=== PATIENT | female | born 1965 | race Caucasian/White ===

== ENCOUNTER 2019-07-17 07:52 | Emergency (ER) | payer OTHER ==
[2019-07-17 09:35] LABS: ABSOLUTE LYMPHOCYTES (AUTO) 1.3 10^3/uL (0.5-4.7); ABSOLUTE MONOCYTES (AUTO) 0.6 10^3/uL (0.1-1.4); ABSOLUTE NEUT (AUTO) 5.9 10^3/uL (1.7-8.2); BASOPHILS % (AUTO) 0.3 % (0-2); EOSINOPHILS % (AUTO) 0.2 % (0-6); HEMATOCRIT 40.6 % (36.0-47.0); HEMOGLOBIN 13.6 g/dL (12.0-15.5); LYMPHOCYTES % (AUTO) 16.3 % (13-45); MEAN CORPUSCULAR HEMOGLOBIN 29.4 pg (27.0-33.4); MEAN CORPUSCULAR HGB CONC 33.4 g/dL (32.0-36.0); MEAN CORPUSCULAR VOLUME 88 fl (80-97); MONOCYTES % (AUTO) 7.6 % (3-13); PLATELET COUNT 318 10^3/uL (150-450); RED BLOOD COUNT 4.62 10^6/uL (3.72-5.28); RED CELL DISTRIBUTION WIDTH 14.1 % (11.5-14.0); SEGMENTED NEUTROPHILS % (AUTO) 75.6 % (42-78); TOTAL CELLS COUNTED % (AUTO) 100 %; WHITE BLOOD COUNT 7.8 10^3/uL (4.0-10.5)
[2019-07-17 09:43] LABS: APPEARANCE,URINE CLOUDY; BILIRUBIN,URINE NEGATIVE (NEGATIVE); COLOR,URINE YELLOW; GLUCOSE, URINE NEGATIVE (NEGATIVE); KETONES,URINE 20 mg/dL (NEGATIVE); LEUKOCYTE ESTERASE,URINE NEGATIVE (NEGATIVE); NITRITE,URINE NEGATIVE (NEGATIVE); PROTEIN,URINE NEGATIVE (NEGATIVE); URINE SPECIFIC GRAVITY 1.015; UROBILINOGEN,URINE NEGATIVE mg/dL (<2.0)
[2019-07-17 10:08] LABS: ALBUMIN 4.3 g/dL (3.5-5.0); ALKALINE PHOSPHATASE 131 U/L (38-126); ANION GAP 12 (5-19); ASPARTATE AMINO TRANSFERASE 32 U/L (14-36); BILIRUBIN,DIRECT 0.3 mg/dL (0.0-0.4); BILIRUBIN,TOTAL 0.4 mg/dL (0.2-1.3); BLOOD UREA NITROGEN 18 mg/dL (7-20); CALCIUM 9.9 mg/dL (8.4-10.2); CARBON DIOXIDE 24 mmol/L (22-30); CHLORIDE 105 mmol/L (98-107); GLUCOSE 93 mg/dL (75-110); POTASSIUM 4.3 mmol/L (3.6-5.0); TOTAL PROTEIN 7.4 g/dL (6.3-8.2)
[2019-07-17] MEDS ORDERED: DEXTROSE 5%-LACTATED RINGERS 1,000 ML IV ONE ×2 (10:40→11:24)
[2019-07-17] MEDS ORDERED: ONDANSETRON HCL INJ/PF 4 MG/2 ML SDV IV ONE (10:40)
--- NOTE | 2019-07-17 11:24 | ER Document Report ---
Entered by ETHAN OGDEN SCRIBE 07/17/19 1038 Acting as scribe for:DESIRAE ARGUETA MD ED GI/ - General Chief Complaint: Nausea/Vomiting Stated Complaint: NAUSEA, VOMITING Time Seen by Provider: 07/17/19 10:24 Primary Care Provider: VALERIA CUNNINGHAM FNP-C [Primary Care Provider] - Follow up as needed Mode of Arrival: Ambulatory Information source: Patient Notes: Patient is a 53 year old female that presents to the emergency department today with complaints of vomiting for the last five days along with loose stool for the last two days. Patient has a history of herpes and she states she got lots of sun exposure recently and began having an outbreak on her face. Patient states she started valtrex on 07/12, and her vomiting began two days after. Patient states she is unsure if there could be an interaction with the Valtrex a nd her Topamax which she was started on about a month ago. Patient has been on Valtrex before with no problem but as stated above, the Topamax is somewhat new. Patient states she does get relief after vomiting. Patient states she has been unable to eat or drink anything because of the nausea and vomiting. Patient denies fevers. - Related Data Allergies/Adverse Reactions: pregabalin [From Lyrica] Allergy (Verified 07/17/19 08:12) Past Medical History - General Information source: Patient - Social History Smoking Status: Former Smoker Cigarette use (# per day): No Frequency of alcohol use: Rare Drug Abuse: None Lives with: Family Family History: Reviewed & Not Pertinent Patient has suicidal ideation: No Patient has homicidal ideation: No GI Medical History: Reports: Hx Gastroesophageal Reflux Disease Psychiatric Medical History: Reports: Hx Anxiety, Hx Depression Past Surgical History: Reports: Hx Cholecystectomy Review of Systems - Review of Systems Constitutional: denies: Fever EENT: No symptoms reported Cardiovascular: No symptoms reported Respiratory: No symptoms reported Gastrointestinal: See HPI, Diarrhea, Vomiting Genitourinary: No symptoms reported Female Genitourinary: No symptoms reported Musculoskeletal: No symptoms reported Skin: See HPI, Lesions Hematologic/Lymphatic: No symptoms reported Neurological/Psychological: No symptoms reported -: Yes All other systems reviewed and negative Physical Exam - Vital signs Vitals: Temp Pulse Resp BP Pulse Ox 98.3 F 58 L 18 141/83 H 96 07/17/19 08:14 07/17/19 08:14 07/17/19 08:14 07/17/19 08:14 07/17/19 08:14 - Notes Notes: Physical Exam: General: Alert, appears well. HEENT: Normocephalic. Atraumatic. PERRL. Extraocular movements intact. O ropharynx clear. Dry oral mucosa. White patches on oral mucosa consistent with yeast. Neck: Supple. Non-tender. Respiratory: No respiratory distress. Clear and equal breath sounds bilaterally. Cardiovascular: Regular rate and rhythm. Abdominal: Normal Inspection. Non-tender. No distension. Normal Bowel Sounds. Back: No gross abnormalities. Extremities: Moves all four extremities. Upper extremities: Normal inspection. Normal ROM. Lower extremities: Normal inspection. No edema. Normal ROM. Neurological: Normal cognition. AAOx4. Normal speech. Psychological: Normal affect. Normal Mood. Skin: Blisters on chin consistent with herpetic lesions. Course - Re-evaluation Re-evalutation: 07/17/19 13:47 Patient is feeling much better. States nauseousness is gone for now. She will be discharged home with medication for nausea, encouraged to drink plenty of fluids get plenty of rest. Informed her that I suspect this is most likely a viral syndrome, possibly related to the recent recurrence of her herpes simplex virus outbreak in the katie-oral region following sun exposure. - Vital Signs Vital signs: Temp Pulse Resp BP Pulse Ox 98.3 F 58 L 18 141/83 H 96 07/17/19 08:14 07/17/19 08:14 07/17/19 08:14 07/17/19 08:14 07/17/19 08:14 - Laboratory Result Diagrams: 07/17/19 09:16 07/17/19 09:16 Laboratory results interpreted by me: 07/17/19 07/17/19 07/17/19 09:16 09:16 09:16 RDW 14.1 H Creatinine 1.33 H Est GFR ( Amer) 50 L Est GFR (MDRD) Non-Af 41 L Alkaline Phosphatase 131 H Urine Ketones 20 H Urine Ascorbic Acid 40 H Discharge - Discharge Clinical Impression: Viral syndrome, Oral yeast infection Nausea and vomiting Qualifiers: Vomiting type: unspecified Vomiting Intractability: non-intractable Qualified Code(s): R11.2 - Nausea with vomiting, unspecified Condition: Stable Disposition: HOME, SELF-CARE Additional Instructions: Nausea or Vomiting, Nonspecific Vomiting (or nausea without vomiting) can be caused by many different problems. Of course, it can mean that something's wrong with the stomach, such as "stomach flu," ulcers, or inflammation. But it can also be a symptom of a problem that has nothing to do with the stomach or intestines. Vomiting is common with severe headaches, earaches, and tonsillitis. We see it with pneumonia or heart attacks. Drugs can cause nausea. Many abdominal problems cause vomiting; for example, gallstones, kidney stones, pancreatitis, and intestinal obstruction (blocked bowels). In most cases, curing the vomiting depends on fixing the problem that caused it. For temporary relief, we may use an anti-nausea medicine. For home use, we can prescribe suppositories, chewable pills, pills that dissolve in the mouth, or liquid anti-nausea drugs. If the vomiting seems to be caused by a problem in the stomach, acid-suppressing drugs may be prescribed as well. It's important to avoid dehydration. Sip clear liquids. Take increasing amounts of fluid over the first 24 hours. Then start small amounts of bland foods (such as dry toast, applesauce, mashed potato). Avoid aspirin, tobacco, and alcohol. Gradually resume your usual diet. If the vomiting worsens, if the problem that's making you vomit worsens, or if there's evidence of bleeding in the stomach (such as black, tarry stool, bloody or black vomit, or lightheadedness), you should return immediately. Call your doctor if you aren't improved in 24 to 36 hours. Take the medication as prescribed for nausea if needed. Start taking the Diflucan tomorrow, for oral yeast infection. Drink plenty of fluids throughout the day in the evening for the next few days. Get plenty of rest and sleep. Follow-up with your primary care provider if not improving. RETURN TO THE EMERGENCY ROOM IF ANY NEW OR WORSENING SYMPTOMS. Prescriptions: Fluconazole [Diflucan 100 Mg Tablet] 100 mg PO DAILY #4 tablet Ondansetron [Zofran Odt 4 mg Tablet] 1 - 2 tab PO Q4H #15 tab.rapdis Referrals: VALERIA CUNNINGHAM, JEAN [Primary Care Provider] - Follow up as needed Scribe Attestation: 07/17/19 11:25 I personally performed the services described in the documentation, reviewed and edited the documentation which was dictated to the scribe in my presence, and it accurately records my words and actions. I personally performed the services described in the documentation, reviewed and edited the documentation which was dictated to the scribe in my presence, and it accurately records my words and actions.
[2019-07-17] MEDS ORDERED: FLUCONAZOLE 100 MG TABLET PO ONE (11:59)
[2019-07-17 14:09] VITALS: BP 127/80
== END 2019-07-17 14:08 | disposition home or self-care (01) ==
LOC: ER 07:52
DX: R11.2 Nausea with vomiting, unspecified (principal); B37.0 Candidal stomatitis; B00.9 Herpesviral infection, unspecified; R19.7 Diarrhea, unspecified; Z79.899 Other long term (current) drug therapy; Z87.19 Personal history of other diseases of the digestive system; Z87.891 Personal history of nicotine dependence; Z88.6 Allergy status to analgesic agent
CPT/HCPCS: 36415; 85025; 80053; 81001; J2405; J7121; 96361; 96374; 99283

== ENCOUNTER 2019-08-05 18:02 | Emergency (ER) | payer OTHER ==
--- NOTE | 2019-08-05 18:14 | ER Document Report ---
ED Medical Screen (RME) - General Chief Complaint: Nausea/Vomiting Stated Complaint: VOMITING Time Seen by Provider: 08/05/19 18:11 Primary Care Provider: VALERIA CUNNINGHAM FNP-C [Primary Care Provider] - Follow up as needed Mode of Arrival: Ambulatory Information source: Patient Notes: 53-year-old female presents to ED's for vomiting since July 30. She states she was seen here in the beginning of July for nausea and vomiting was given IV fluids and sent home for stomach virus. She started on the she started vomiting again. With minimal pain in her upper abdomen this started after the vomiting. She is alert oriented respirations regular nonlabored. Does smoke no drink no drugs no past medical history. I have greeted and performed a rapid initial assessment of this patient. A comprehensive ED assessment and evaluation of the patient, analysis of test results and completion of medical decision making process will be conducted by a n additional ED providers. - Related Data Allergies/Adverse Reactions: pregabalin [From Lyrica] Allergy (Verified 07/17/19 08:12) Past Medical History GI Medical History: Reports: Hx Gastroesophageal Reflux Disease Psychiatric Medical History: Reports: Hx Anxiety, Hx Depression Past Surgical History: Reports: Hx Cholecystectomy Physical Exam - Vital signs Vitals: Temp Pulse Resp BP Pulse Ox 98.3 F 82 16 131/77 H 98 08/05/19 18:06 08/05/19 18:06 08/05/19 18:06 08/05/19 18:06 08/05/19 18:06 Course - Vital Signs Vital signs: Temp Pulse Resp BP Pulse Ox 98.3 F 82 16 131/77 H 98 08/05/19 18:06 08/05/19 18:06 08/05/19 18:06 08/05/19 18:06 08/05/19 18:06 Doctor's Discharge - Discharge Referrals: VALERIA CUNNINGHAM FNP-C [Primary Care Provider] - Follow up as needed
[2019-08-05] MEDS ORDERED: ONDANSETRON 4 MG TAB.RAPDIS PO ONE (18:15)
[2019-08-05 19:03] LABS: ABSOLUTE LYMPHOCYTES (AUTO) 1.1 10^3/uL (0.5-4.7); ABSOLUTE MONOCYTES (AUTO) 0.7 10^3/uL (0.1-1.4); ABSOLUTE NEUT (AUTO) 8.2 10^3/uL (1.7-8.2); BASOPHILS % (AUTO) 0.3 % (0-2); EOSINOPHILS % (AUTO) 0.1 % (0-6); HEMATOCRIT 45.5 % (36.0-47.0); HEMOGLOBIN 15.2 g/dL (12.0-15.5); LYMPHOCYTES % (AUTO) 11.3 % (13-45); MEAN CORPUSCULAR HEMOGLOBIN 29.2 pg (27.0-33.4); MEAN CORPUSCULAR HGB CONC 33.4 g/dL (32.0-36.0); MEAN CORPUSCULAR VOLUME 88 fl (80-97); MONOCYTES % (AUTO) 6.7 % (3-13); PLATELET COUNT 300 10^3/uL (150-450); RED BLOOD COUNT 5.21 10^6/uL (3.72-5.28); RED CELL DISTRIBUTION WIDTH 14.9 % (11.5-14.0); SEGMENTED NEUTROPHILS % (AUTO) 81.6 % (42-78); TOTAL CELLS COUNTED % (AUTO) 100 %
[2019-08-05 19:04] LABS: VENOUS BLOOD BASE EXCESS -9.2 mmol/L; VENOUS BLOOD PCO2 38.2 mmHg (35-63); VENOUS BLOOD PH 7.27 (7.30-7.42)
[2019-08-05 19:26] LABS: ALKALINE PHOSPHATASE 157 U/L (38-126); ASPARTATE AMINO TRANSFERASE 72 U/L (14-36); BILIRUBIN,DIRECT 0.3 mg/dL (0.0-0.4); BILIRUBIN,TOTAL 0.6 mg/dL (0.2-1.3); BLOOD UREA NITROGEN 12 mg/dL (7-20); CALCIUM 10.8 mg/dL (8.4-10.2); CARBON DIOXIDE 16 mmol/L (22-30); CHLORIDE 99 mmol/L (98-107); GLUCOSE 99 mg/dL (75-110); POTASSIUM 3.4 mmol/L (3.6-5.0); TOTAL PROTEIN 8.7 g/dL (6.3-8.2)
[2019-08-05 19:32] LABS: ANION GAP 25 (5-19)
[2019-08-05 21:19] LABS: APPEARANCE,URINE SLIGHTLY-CLOUDY; BILIRUBIN,URINE NEGATIVE (NEGATIVE); COLOR,URINE YELLOW; GLUCOSE, URINE NEGATIVE (NEGATIVE); KETONES,URINE 80 mg/dL (NEGATIVE); PROTEIN,URINE 100 mg/dL (NEGATIVE); URINE SPECIFIC GRAVITY 1.017; UROBILINOGEN,URINE NEGATIVE mg/dL (<2.0)
[2019-08-05] MEDS ORDERED: RINGERS SOLUTION,LACTATED 1,000 ML IV ONE (22:47)
--- NOTE | 2019-08-05 22:50 | ER Document Report ---
ED GI/ - General Chief Complaint: Nausea/Vomiting Stated Complaint: VOMITING Time Seen by Provider: 08/05/19 18:11 Primary Care Provider: VALERIA CUNNINGHAM FNP-C [Primary Care Provider] - Follow up as needed Mode of Arrival: Ambulatory Notes: Patient is a 53-year-old female that comes emergency department for chief complaint of vomiting. She states she has been vomiting for 1 week now, she states that every time she eats she vomits. She denies hematemesis, she states her last bowel movement was 3 days ago but normal. She denies fever/chills. She states she had this 1 time before a couple of weeks ago but previously has not had problems with this. She denies any other symptoms. She does report a past medical history of peptic ulcer disease treated with Prilosec found on en doscopy, she also reports history of cholecystectomy. Past medical history also includes anxiety/depression, insomnia and these are treated. She denies alcohol, recreational drugs, smoking. TRAVEL OUTSIDE OF THE [place] IN LAST 30 DAYS: No - Related Data Allergies/Adverse Reactions: pregabalin [From Lyrica] Allergy (Verified 08/05/19 18:12) Past Medical History - General Information source: Patient - Social History Smoking Status: Never Smoker Chew tobacco use (# tins/day): No Frequency of alcohol use: None Drug Abuse: None Family History: Reviewed & Not Pertinent Patient has suicidal ideation: No Patient has homicidal ideation: No GI Medical History: Reports: Hx Gastroesophageal Reflux Disease Psychiatric Medical History: Reports: Hx Anxiety, Hx Depression - anxiety Past Surgical History: Reports: Hx Cholecystectomy, Hx Oral Surgery Review of Systems - Review of Systems Constitutional: No symptoms reported EENT: No symptoms reported Cardiovascular: No symptoms reported Respiratory: No symptoms reported Gastrointestinal: See HPI Genitourinary: No symptoms reported Female Genitourinary: No symptoms reported Musculoskeletal: No symptoms reported Skin: No symptoms reported Hematologic/Lymphatic: No symptoms reported Neurological/Psychological: No symptoms reported Physical Exam - Vital signs Vitals: Temp Pulse Resp BP Pulse Ox 98.3 F 82 16 131/77 H 98 08/05/19 18:06 08/05/19 18:06 08/05/19 18:06 08/05/19 18:06 08/05/19 18:06 - Notes Notes: GENERAL: Alert, interacts well. No acute distress. Appears slightly unwell and pale HEAD: Normocephalic, atraumatic. EYES: Pupils equal, round, and reactive to light. Extraocular movements intact. ENT: Oral mucosa very dry, tongue midline. Oropharynx unremarkable. Airway patent. NECK: Full range of motion. Supple. Trachea midline. LUNGS: Clear to auscultation bilaterally, no wheezes, rales, or rhonchi. No respiratory distress. HEART: Regular rate and rhythm. No murmur ABDOMEN: Minimal generalized abdominal tenderness, nondistended, bowel sounds present throughout GENITOURINARY: Deferred EXTREMITIES: Moves all 4 extremities spontaneously. No edema, normal radial and dorsalis pedis pulses bilaterally. No cyanosis. BACK: no cervical, thoracic, lumbar midline tenderness. No saddle anesthesia, normal distal neurovascular exam. Moves all extremities in full range of motion. NEUROLOGICAL: Alert and oriented x3. Normal speech. Cranial nerves II through XII grossly intact. PSYCH: Normal affect, normal mood. SKIN: Pale Course - Re-evaluation Re-evalutation: Patient does have metabolic acidosis with low bicarbonate, low pH, and lots of ketones in the urine. This appears to be from fasting with inability to eat from vomiting. Patient initially states she felt terrible, she was given lactated Ringer's, given additional normal saline afterwards. She is not tachycardic, febrile, her abdomen is actually soft and benign, the x-ray does not show obstruction or free air, there is no concerning leukocytosis. I reevaluated patient. After IV treatments patient is now sitting up in bed, states she feels much improved. She does not have hyperglycemia or history of diabetes. She denies alcohol. She does not have pancreatitis. Patient is asking if she can go home. I did discuss CAT scan because of vomiting, patient states that she feels like she can eat and tolerate p.o. now. After discussion decision was made that if patient can tolerate p.o., drink fluids, take medications, and still feels good without vomiting that instead of additional imaging to evaluate her persistent vomiting she will be discharged with tentative diagnosis of gastritis with follow-up instructions and strict return precautions. Patient was held, given additional fluids, drink p.o. fluids, took medications, I reevaluate her given she states she feels normal. She is grateful and states she will return if she worsens in any way. Stable time of discharge. - Vital Signs Vital signs: Temp Pulse Resp BP Pulse Ox 98 F 75 18 110/70 98 08/06/19 02:50 08/06/19 02:50 08/06/19 02:50 08/06/19 02:50 08/06/19 02:50 - Laboratory Result Diagrams: 08/05/19 18:48 08/05/19 18:48 Laboratory results interpreted by me: 08/05/19 08/05/19 08/05/19 18:48 18:48 18:48 RDW 14.9 H Lymph % (Auto) 11.3 L Seg Neutrophils % 81.6 H VBG pH 7.27 L VBG HCO3 17.0 L Potassium 3.4 L Carbon Dioxide 16 L Anion Gap 25 H Calcium 10.8 H AST 72 H Alkaline Phosphatase 157 H Total Protein 8.7 H Urine Protein Urine Ketones Urine Blood Leukocyte Esterase Rfl 08/05/19 20:50 RDW Lymph % (Auto) Seg Neutrophils % VBG pH VBG HCO3 Potassium Carbon Dioxide Anion Gap Calcium AST Alkaline Phosphatase Total Protein Urine Protein 100 H Urine Ketones 80 H Urine Blood SMALL H Leukocyte Esterase Rfl TRACE H Discharge - Discharge Clinical Impression: Dehydration, Upper abdominal pain Vomiting Qualifiers: Vomiting type: unspecified Vomiting Intractability: non-intractable Nausea presence: with nausea Qualified Code(s): R11.2 - Nausea with vomiting, unspecified Condition: Stable Disposition: HOME, SELF-CARE Additional Instructions: Your symptoms and examination indicate gastritis/esophagitis (inflammation of your upper gastrointestinal tract). Take Phenergan for nausea, take Carafate and Pepcid as prescribed to help treat this, continue your Prilosec, you can take additional Rolaids, Tums, Maalox, etc. if needed. You can take Tylenol for pain. Avoid NSAIDs, alcohol, smoking, caffeine, spicy food. Start with clear fluids, progress to bland diet. Follow-up with primary care for additional evaluation and treatment including possible H. pylori testing. Return if you worsen including uncontrolled vomiting, vomiting blood, black stools, severe pain, fever of 100.4 or greater, or any other concerning or worsening symptoms. Prescriptions: Sucralfate [Carafate 1 gm Tablet] 1 gm PO QID #20 tablet Famotidine [Pepcid 20 mg Tablet] 20 mg PO BID #20 tablet Promethazine HCl [Phenergan 25 mg Tablet] 25 mg PO Q6H PRN #20 tablet PRN Reason: Forms: Return to Work Referrals: VALERIA CUNNINGHAM CAD DETAILER-C [Primary Care Provider] - Follow up as needed
--- NOTE | 2019-08-05 23:44 | RADIOLOGY REPORT (SQ) ---
EXAM DESCRIPTION: XR ABDOMEN SUPINE AND ERECT WITH CHEST (ABD ACUTE SERIES) COMPLETED DATE/TME: 08/05/2019 23:10 CLINICAL HISTORY: 53 years, Female, persistent vomiting, no recent bowel movement COMPARISON: None. NUMBER OF VIEWS: Three TECHNIQUE: Three frontal views of the abdomen/chest were obtained LIMITATIONS: None. FINDINGS: Cardiac and mediastinal contours are normal. Lungs are clear. No pleural effusion or pneumothorax. Gas and a mild amount of stool are noted throughout the large bowel. Scattered nondilated loops of small bowel are visible throughout the abdomen. Surgical clips project over the right upper quadrant. No suspicious soft tissue calcifications or osseous anomalies are appreciated. No subdiaphragmatic free air. IMPRESSION: No acute disease within the chest. Nonobstructive bowel gas pattern. copyright 2010 [employer]- All Rights Reserved
[2019-08-05] MEDS ORDERED: NORMAL SALINE 500 ML IV ONE (23:52)
[2019-08-06] MEDS ORDERED: FAMOTIDINE 20 MG TABLET PO ONE (00:46)
[2019-08-06] MEDS ORDERED: SUCRALFATE 1 GM TABLET PO ONE (00:46)
[2019-08-06] MEDS ORDERED: METOCLOPRAMIDE HCL INJ/PF 10 MG/2 ML SDV IV ONE (00:46)
[2019-08-06 02:50] VITALS: BP 110/70
== END 2019-08-06 02:51 | disposition home or self-care (01) ==
LOC: ER 18:02
DX: E86.0 Dehydration (principal); R10.10 Upper abdominal pain, unspecified; R10.84 Generalized abdominal pain; R11.2 Nausea with vomiting, unspecified; Z90.49 Acquired absence of other specified parts of digestive tract
CPT/HCPCS: 99283; 96361; 96374; 36415; 87086; 82962; 83690; 85025; 80053; 81001; 82803; 74022; S0119; J2765; J7040; J7120

== ENCOUNTER 2019-08-11 08:35 | Day surgery (SDC) | payer OTHER ==
[2019-08-11] MEDS ORDERED: PROPOFOL INJ 200 MG/20 ML VIAL IV ONE (09:00)
[2019-08-11] MEDS ORDERED: LIDOCAINE 2% INJ-PF (20 MG/ML) 10 ML AMPUL ONE (09:02)
[2019-08-11] MEDS ORDERED: DIPHENHYDRAMINE HCL 50 MG/ML VIAL IV PRN (10:52)
[2019-08-11] MEDS ORDERED: PROMETHAZINE HCL INJ 25 MG/1 ML VIAL IV PRN (10:52)
[2019-08-11] MEDS ORDERED: FENTANYL CITRATE INJ/PF 100 MCG/2 ML AMPUL IV PRN ×2 (10:52)
--- NOTE | 2019-08-11 12:01 | Operative Report ---
Operative Report DATE OF SURGERY: 08/11/19 Operative Report: The risks benefits and alternatives of the procedure explained to the patient in detail and informed consent is obtained.A GIF Olympus video scope was inserted into the patient's mouth and hypopharynx, the esophagus is identified intubated and insufflated, the scope was then advanced through the esophagus stomach and duodenum, retroflexion maneuver is done ,the esophagus stomach and first and second portions of the duodenum examined. PREOPERATIVE DIAGNOSIS: Nausea vomiting POSTOPERATIVE DIAGNOSIS: Nodular gastritis status post biopsy without Helicobacter pylori OPERATION: EGD with biopsy SURGEON: SHERRILL POSADA ANESTHESIA: LMAC TISSUE REMOVED OR ALTERED: As noted above. COMPLICATIONS: None. ESTIMATED BLOOD LOSS: None. INTRAOPERATIVE FINDINGS: As noted above. PROCEDURE: Patient tolerated the procedure well. No immediate postprocedure complications are noted. Patient is discharged in good condition. Discharge date 08/11/2019. Discharge diet: Regular. Discharge activity: Regular. 2 to 3-week follow-up to discuss findings. Patient is instructed to call the office or proceed to the emergency room should there be any further questions. Wait on the pathology.
[2019-08-11 13:26] VITALS: BP 105/75
== END 2019-08-11 12:15 | disposition home or self-care (01) ==
LOC: OROUT 08:35
PROVIDERS: ATTEND Internal Medicine Gastroenterology
DX: K29.60 Other gastritis without bleeding (principal); R94.5 Abnormal results of liver function studies
CPT/HCPCS: 43239; 88342 ×2; 88305 ×2; J2704; J3490; 731

== ENCOUNTER 2019-08-13 18:28 | Emergency (ER) | payer OTHER ==
--- NOTE | 2019-08-13 19:19 | ER Document Report ---
ED Medical Screen (RME) - General Chief Complaint: Vomiting Stated Complaint: VOMITING/ABDOMINAL PAIN/WEIGHT LOSS Time Seen by Provider: 08/13/19 19:17 Primary Care Provider: VALERIA CUNNINGHAM FNP-C [Primary Care Provider] - Follow up as needed Mode of Arrival: Ambulatory Information source: Patient Notes: 53-year-old female presents to ED for right upper quadrant abdominal pain since July 12. She states she does not have a gallbladder. States she has nausea and vomiting twice today. Patient is alert oriented respirations regular nonlabored speaking in full sentences. Denies smoking drinking or use of drugs. She states her last visit to the emergency room was on 01 August for the same complaint. I have greeted and performed a rapid initial assessment of this patient. A comprehensive ED assessment and evaluation of the patient, analysis of test results and completion of medical decision making process will be conducted by an additional ED providers. TRAVEL OUTSIDE OF THE [place] IN LAST 30 DAYS: No - Related Data Allergies/Adverse Reactions: pregabalin [From Lyrica] Allergy (Verified 08/11/19 09:05) Past Medical History - Past Medical History Cardiac Medical History: Denies: Hx Coronary Artery Disease, Hx Heart Attack, Hx Hypertension Pulmonary Medical History: Denies: Hx Asthma, Hx Bronchitis, Hx COPD, Hx Pneumonia Neurological Medical History: Denies: Hx Cerebrovascular Accident, Hx Seizures GI Medical History: Reports: Hx Gastroesophageal Reflux Disease Musculoskeltal Medical History: Denies Hx Arthritis Psychiatric Medical History: Reports: Hx Anxiety, Hx Depression - anxiety Past Surgical History: Reports: Hx Cholecystectomy, Hx Oral Surgery - Immunizations Hx Diphtheria, Pertussis, Tetanus Vaccination: No Physical Exam - Vital signs Vitals: Temp Pulse Resp BP Pulse Ox 97.8 F 95 12 120/82 100 08/13/19 18:32 08/13/19 18:32 08/13/19 18:32 08/13/19 18:32 08/13/19 18:32 Course - Vital Signs Vital signs: Temp Pulse Resp BP Pulse Ox 97.8 F 95 12 120/82 100 08/13/19 18:32 08/13/19 18:32 08/13/19 18:32 08/13/19 18:32 08/13/19 18:32 Doctor's Discharge - Discharge Referrals: OCTAVIO,VALERIA E, DETECTIVE INVESTIGATOR-C [Primary Care Provider] - Follow up as needed
[2019-08-13 20:38] LABS: APPEARANCE,URINE SLIGHTLY-CLOUDY; BILIRUBIN,URINE NEGATIVE (NEGATIVE); COLOR,URINE YELLOW; GLUCOSE, URINE NEGATIVE (NEGATIVE); KETONES,URINE 80 mg/dL (NEGATIVE); PROTEIN,URINE 100 mg/dL (NEGATIVE); URINE SPECIFIC GRAVITY 1.021
[2019-08-13 20:43] LABS: ABSOLUTE BASOPHILS # (AUTO) 0.1 10^3/uL (0.0-0.2); ABSOLUTE LYMPHOCYTES (AUTO) 1.6 10^3/uL (0.5-4.7); ABSOLUTE MONOCYTES (AUTO) 1.5 10^3/uL (0.1-1.4); ABSOLUTE NEUT (AUTO) 8.3 10^3/uL (1.7-8.2); BASOPHILS % (AUTO) 0.6 % (0-2); EOSINOPHILS % (AUTO) 0.1 % (0-6); HEMATOCRIT 43.3 % (36.0-47.0); HEMOGLOBIN 14.8 g/dL (12.0-15.5); LYMPHOCYTES % (AUTO) 14.1 % (13-45); MEAN CORPUSCULAR HEMOGLOBIN 29.4 pg (27.0-33.4); MEAN CORPUSCULAR HGB CONC 34.2 g/dL (32.0-36.0); MEAN CORPUSCULAR VOLUME 86 fl (80-97); MONOCYTES % (AUTO) 13.2 % (3-13); PLATELET COUNT 290 10^3/uL (150-450); RED BLOOD COUNT 5.03 10^6/uL (3.72-5.28); RED CELL DISTRIBUTION WIDTH 14.7 % (11.5-14.0); TOTAL CELLS COUNTED % (AUTO) 100 %; WHITE BLOOD COUNT 11.5 10^3/uL (4.0-10.5)
[2019-08-13 20:58] LABS: ALBUMIN 4.7 g/dL (3.5-5.0); ALKALINE PHOSPHATASE 147 U/L (38-126); ASPARTATE AMINO TRANSFERASE 52 U/L (14-36); BILIRUBIN,DIRECT 0.3 mg/dL (0.0-0.4); BILIRUBIN,TOTAL 0.6 mg/dL (0.2-1.3); BLOOD UREA NITROGEN 18 mg/dL (7-20); CALCIUM 10.8 mg/dL (8.4-10.2); GLUCOSE 108 mg/dL (75-110); POTASSIUM 3.4 mmol/L (3.6-5.0); TOTAL PROTEIN 8.2 g/dL (6.3-8.2)
[2019-08-13 21:03] LABS: CARBON DIOXIDE 21 mmol/L (22-30); CHLORIDE 96 mmol/L (98-107)
[2019-08-13 21:10] LABS: ANION GAP 21 (5-19)
[2019-08-14] MEDS: NORMAL SALINE 1000 ML 1,000 ML IV PRN ×2 (00:30→02:00)
[2019-08-14] MEDS ORDERED: ONDANSETRON HCL INJ/PF 4 MG/2 ML SDV IV ONE (00:33)
[2019-08-14] MEDS ORDERED: METOCLOPRAMIDE HCL INJ/PF 10 MG/2 ML SDV IV ONE (00:33)
[2019-08-14] MEDS ORDERED: DIPHENHYDRAMINE HCL 50 MG/ML VIAL IV ONE (00:34)
[2019-08-14] MEDS ORDERED: NYSTATIN 500000 UNIT/5 ML UDCUP PO ONE (00:37)
--- NOTE | 2019-08-14 00:39 | ER Document Report ---
ED General - General Chief Complaint: Vomiting Stated Complaint: VOMITING/ABDOMINAL PAIN/WEIGHT LOSS Time Seen by Provider: 08/13/19 19:17 Primary Care Provider: VALERIA CUNNINGHAM FNP-C [Primary Care Provider] - Follow up as needed Mode of Arrival: Ambulatory TRAVEL OUTSIDE OF THE [place] IN LAST 30 DAYS: No - HPI Notes: Patient is a 53-year-old female who presents emergency department for evaluation of nausea, vomiting, right-sided abdominal pain. She states her symptoms been ongoing since the end of June. She is had multiple episodes of emesis daily. She states she had 2 or 3 episodes of yellow-green emesis today. She states she has a intermittent abdominal pain, epigastric and right upper quadrant, that is colicky in nature. Nothing seems to make it better or worse. She is still urinating. She had a EGD by Dr. Baires recently. She states they had suspected that she had H. pylori, but gastritis was the only positive finding on her scope. She is been taking her medications as prescribed. She denies any urinary symptoms. Normal bowel movements. She states that she is scheduled for further testing, including gastric emptying study and a CT scan of the abdomen pelvis, later this month with Dr. Baires. - Related Data Allergies/Adverse Reactions: pregabalin [From Lyrica] Allergy (Verified 08/13/19 23:50) Home Medications: omeprazole 40 mg,. pepcid 20 mg. promethazine 25 mg Past Medical History - General Information source: Patient - Social History Smoking Status: Never Smoker Chew tobacco use (# tins/day): No Frequency of alcohol use: None Drug Abuse: None Family History: Reviewed & Not Pertinent Patient has suicidal ideation: No Patient has homicidal ideation: No - Past Medical History Cardiac Medical History: Denies: Hx Coronary Artery Disease, Hx Heart Attack, Hx Hypertension Pulmonary Medical History: Denies: Hx Asthma, Hx Bronchitis, Hx COPD, Hx Pneumonia Neurological Medical History: Denies: Hx Cerebrovascular Accident, Hx Seizures GI Medical History: Reports: Hx Gastroesophageal Reflux Disease, Other - History of peptic ulcer disease Musculoskeletal Medical History: Denies Hx Arthritis Psychiatric Medical History: Reports: Hx Anxiety, Hx Depression - anxiety Past Surgical History: Reports: Hx Cholecystectomy, Hx Oral Surgery - Immunizations Hx Diphtheria, Pertussis, Tetanus Vaccination: No Review of Systems - Review of Systems Constitutional: See HPI EENT: No symptoms reported Cardiovascular: No symptoms reported Respiratory: No symptoms reported Gastrointestinal: See HPI Genitourinary: No symptoms reported Musculoskeletal: No symptoms reported Skin: No symptoms reported Neurological/Psychological: No symptoms reported Physical Exam - Vital signs Vitals: Temp Pulse Resp BP Pulse Ox 97.8 F 95 12 120/82 100 08/13/19 18:32 08/13/19 18:32 08/13/19 18:32 08/13/19 18:32 08/13/19 18:32 - Notes Notes: This is a weak but nontoxic appearing 53-year-old female, appears stated age, no acute distress. Vital signs reviewed, please refer to chart. Head is normocephalic, atraumatic. Pupils equal round, reactive to light. Tongue is coated, with erythematous base, consistent with thrush. Neck is supple without meningismus. Heart is regular rate and rhythm. Lungs are clear to auscultation bilaterally. Abdomen is soft, mildly tender in the epigastrium and right upper quadrant without rebound or guarding, normoactive bowel sounds throughout. Extremities without cyanosis, clubbing. Posterior calves are nontender. Peripheral pulses are equal. Skin is warm and dry. Patient is awake, alert, neurological exam is nonfocal. Course - Re-evaluation Re-evalutation: 08/14/19 03:48 Patient presents emergency department for evaluation of nausea and vomiting. Laboratory investigations were obtained. She is not significantly dry. Her renal function is normal. She is given IV fluids. She had absolutely no emesis here. She is given nystatin for her oral thrush. Patient tolerated this without difficulty. She already has GI follow-up. At this point she does not meet any criteria for admission. Her vitals are unremarkable. I will send her home with some Reglan, Zofran, and close follow-up. She is to return to the ED with worsening. - Vital Signs Vital signs: Temp Pulse Resp BP Pulse Ox 97.8 F 95 12 120/82 100 08/13/19 18:32 08/13/19 18:32 08/13/19 18:32 08/13/19 18:32 08/13/19 18:32 - Laboratory Result Diagrams: 08/13/19 20:06 08/13/19 20:06 Laboratory results interpreted by me: 11/10/3108/13/19 08/13/19 20:06 20:06 20:06 WBC 11.5 H RDW 14.7 H [place] % (Auto) 13.2 H Absolute Neuts (auto) 8.3 H Absolute Monos (auto) 1.5 H Potassium 3.4 L Chloride 96 L Carbon Dioxide 21 L Anion Gap 21 H Calcium 10.8 H AST 52 H Alkaline Phosphatase 147 H Urine Protein 100 H Urine Ketones 80 H Urine Urobilinogen 2.0 H Leukocyte Esterase Rfl MODERATE H Discharge - Discharge Clinical Impression: Oral pharyngeal candidiasis Nausea and vomiting Qualifiers: Vomiting type: unspecified Vomiting Intractability: intractable Qualified Code(s): R11.2 - Nausea with vomiting, unspecified Condition: Stable Disposition: HOME, SELF-CARE Instructions: Vomiting ([facility]), Oral Thrush ([facility]) Additional Instructions: Take small, frequent sips of fluids. Use nystatin as directed until gone. Follow-up with GI soon as possible. Zofran and/or Reglan as needed for nausea. Return to the emergency department with worsening or new concerning symptoms of any sort. Referrals: VALERIA CUNNINGHAM, CART DRIVER-C [Primary Care Provider] - Follow up as needed
[2019-08-14] MEDS ORDERED: ONDANSETRON ODT 4 MG TAB (6 TAB/ER DISP) PO PRN (03:48)
[2019-08-14 04:18] VITALS: BP 107/64
== END 2019-08-14 04:18 | disposition home or self-care (01) ==
LOC: ER 18:28
DX: B37.0 Candidal stomatitis (principal); K29.70 Gastritis, unspecified, without bleeding; K21.9 Gastro-esophageal reflux disease without esophagitis; R11.2 Nausea with vomiting, unspecified; R10.13 Epigastric pain; R10.11 Right upper quadrant pain; R10.811 Right upper quadrant abdominal tenderness; R10.816 Epigastric abdominal tenderness; Z79.899 Other long term (current) drug therapy; Z88.6 Allergy status to analgesic agent; Z90.49 Acquired absence of other specified parts of digestive tract
CPT/HCPCS: 36415; 87086; 83690; 85025; 80053; 81001; J1200; J2765; J2405; J7030; 96361; 96374; 96375; 99283

== ENCOUNTER 2019-09-07 11:43 | Emergency (ER) | payer OTHER ==
[2019-09-07] MEDS ORDERED: RINGERS SOLUTION,LACTATED 1,000 ML IV ONE (12:01)
[2019-09-07] MEDS ORDERED: ONDANSETRON HCL INJ/PF 4 MG/2 ML SDV IV ONE (12:02)
--- NOTE | 2019-09-07 12:03 | ER Document Report ---
ED Medical Screen (RME) - General Chief Complaint: Dizziness Stated Complaint: VOMITING/WEAKNESS/DIZZINESS Time Seen by Provider: 09/07/19 11:49 Primary Care Provider: SHERRILL POSADA MD [Primary Care Provider] - Follow up as needed Information source: Patient, Relative Notes: Patient presents complaining of nausea and vomiting for the past 2 months. Patient states she was just discharged from [facility] after a 10-day admission on the 14 of this month. Patient denies any abdominal pain. Patient complains of dizziness and weakness. Patient has been taking Reglan without improvement of her symptoms. I have greeted and performed a rapid initial assessment of this patient. A comprehensive ED assessment and evaluation of the patient, analysis of test results and completion of the medical decision making process will be conducted by additional ED providers. TRAVEL OUTSIDE OF THE [place] IN LAST 30 DAYS: No - Related Data Allergies/Adverse Reactions: pregabalin [From Lyrica] Allergy (Verified 08/13/19 23:50) Past Medical History - Social History Chew tobacco use (# tins/day): No Frequency of alcohol use: Occasional Drug Abuse: None - Past Medical History Cardiac Medical History: Denies: Hx Coronary Artery Disease, Hx Heart Attack, Hx Hypertension Pulmonary Medical History: Denies: Hx Asthma, Hx Bronchitis, Hx COPD, Hx Pneumonia Neurological Medical History: Denies: Hx Cerebrovascular Accident, Hx Seizures GI Medical History: Reports: Hx Gastroesophageal Reflux Disease Musculoskeltal Medical History: Denies Hx Arthritis Psychiatric Medical History: Reports: Hx Anxiety, Hx Depression - anxiety Past Surgical History: Reports: Hx Cholecystectomy, Hx Oral Surgery - Immunizations Hx Diphtheria, Pertussis, Tetanus Vaccination: No Physical Exam - Vital signs Vitals: Temp Pulse Resp BP Pulse Ox 97.6 F 78 18 142/89 H 99 09/07/19 11:53 09/07/19 11:53 09/07/19 11:53 09/07/19 11:53 09/07/19 11:53 - General General appearance: Alert Notes: Appears to feel bad - Abdominal Inspection: Normal Tenderness: Nontender Course - Vital Signs Vital signs: Temp Pulse Resp BP Pulse Ox 97.6 F 78 18 142/89 H 99 09/07/19 11:53 09/07/19 11:53 09/07/19 11:53 09/07/19 11:53 09/07/19 11:53 Doctor's Discharge - Discharge Referrals: SHERRILL POSADA MD [Primary Care Provider] - Follow up as needed
[2019-09-07 13:34] LABS: ABSOLUTE LYMPHOCYTES (AUTO) 0.6 10^3/uL (0.5-4.7); ABSOLUTE MONOCYTES (AUTO) 0.5 10^3/uL (0.1-1.4); ABSOLUTE NEUT (AUTO) 9.1 10^3/uL (1.7-8.2); BASOPHILS % (AUTO) 0.4 % (0-2); HEMATOCRIT 42.6 % (36.0-47.0); HEMOGLOBIN 14.3 g/dL (12.0-15.5); LYMPHOCYTES % (AUTO) 6.2 % (13-45); MEAN CORPUSCULAR HEMOGLOBIN 29.8 pg (27.0-33.4); MEAN CORPUSCULAR HGB CONC 33.6 g/dL (32.0-36.0); MEAN CORPUSCULAR VOLUME 89 fl (80-97); MONOCYTES % (AUTO) 5.2 % (3-13); PLATELET COUNT 359 10^3/uL (150-450); RED BLOOD COUNT 4.79 10^6/uL (3.72-5.28); RED CELL DISTRIBUTION WIDTH 16.7 % (11.5-14.0); SEGMENTED NEUTROPHILS % (AUTO) 88.2 % (42-78); TOTAL CELLS COUNTED % (AUTO) 100 %; WHITE BLOOD COUNT 10.4 10^3/uL (4.0-10.5)
--- NOTE | 2019-09-07 13:56 | RADIOLOGY REPORT (SQ) ---
EXAM DESCRIPTION: CHEST 2 VIEWS COMPLETED DATE/TIME: 09/07/2019 1:40 pm REASON FOR STUDY: nausea/vomiting COMPARISON: None. EXAM PARAMETERS: NUMBER OF VIEWS: two views TECHNIQUE: Digital Frontal and Lateral radiographic views of the chest acquired. RADIATION DOSE: NA LIMITATIONS: none FINDINGS: LUNGS AND PLEURA: No opacities, masses or pneumothorax. No pleural effusion. MEDIASTINUM AND HILAR STRUCTURES: No masses or contour abnormalities. HEART AND VASCULAR STRUCTURES: Heart normal size. No evidence for failure. BONES: No acute findings. HARDWARE: Prior cholecystectomy. OTHER: No other significant finding. IMPRESSION: NO ACUTE RADIOGRAPHIC FINDING IN THE CHEST. TECHNICAL DOCUMENTATION: JOB ID: [id number] [employer]- All Rights Reserved Reading location - IP/workstation name: [email or web address]
--- NOTE | 2019-09-07 14:01 | ER Document Report ---
ED General - General TRAVEL OUTSIDE OF THE [place] IN LAST 30 DAYS: No <ELENA NOLAND - Last Filed: 09/07/19 20:30> <SHAISTA MOFFETT - Last Filed: 09/08/19 06:17> - General Chief Complaint: Dizziness Stated Complaint: VOMITING/WEAKNESS/DIZZINESS Time Seen by Provider: 09/07/19 11:49 Notes: 53-year-old female presents for continued nausea/vomiting for the past 2 months. Patient is also been having dizziness which is worse with standing and moving her head for the past 2 to 3 weeks. Patient has been to this ER 3 times previously for same symptoms and to [facility] for same. Patient was just discharged from [facility] 2 weeks ago after being admitted for 10 days. Patient states she has been worked up extensively without any answer for her symptoms. Patient was placed on Reglan and states this did help however it stopped working in the past couple days. Patient denies chest pain, dyspnea, abdominal pain, fevers, chills. (ELENA NOLAND) - Related Data Allergies/Adverse Reactions: pregabalin [From Lyrica] Allergy (Verified 09/07/19 12:21) Past Medical History - General Information source: Patient, Relative - Social History Smoking Status: Never Smoker Chew tobacco use (# tins/day): No Frequency of alcohol use: Occasional Drug Abuse: None Family History: Reviewed & Not Pertinent Patient has suicidal ideation: No Patient has homicidal ideation: No - Past Medical History Cardiac Medical History: Denies: Hx Coronary Artery Disease, Hx Heart Attack, Hx Hypertension Pulmonary Medical History: Denies: Hx Asthma, Hx Bronchitis, Hx COPD, Hx Pneumonia Neurological Medical History: Denies: Hx Cerebrovascular Accident, Hx Seizures GI Medical History: Reports: Hx Gastroesophageal Reflux Disease Musculoskeletal Medical History: Denies Hx Arthritis Psychiatric Medical History: Reports: Hx Anxiety, Hx Depression - anxiety Past Surgical History: Reports: Hx Cholecystectomy, Hx Oral Surgery - Immunizations Hx Diphtheria, Pertussis, Tetanus Vaccination: No <ELENA NOLAND - Last Filed: 09/07/19 20:30> Review of Systems <ELENA NOLAND - Last Filed: 09/07/19 20:30> - Review of Systems Notes: Constitutional: Negative for fever. HENT: Negative for sore throat. Eyes: Negative for visual changes. Cardiovascular: Negative for chest pain. Respiratory: Negative for shortness of breath. Gastrointestinal: Positive for nausea and vomiting. Negative for abdominal pain or diarrhea. Genitourinary: Negative for dysuria. Musculoskeletal: Negative for back pain. Skin: Negative for rash. Neurological:Positive for dizziness. Negative for headaches, weakness or numbness. 10 point ROS negative except as marked above and in HPI. (ELENA NOLAND) Physical Exam <ELENA NOLAND - Last Filed: 09/07/19 20:30> - Vital signs Vitals: Temp Pulse Resp BP Pulse Ox 97.6 F 78 18 142/89 H 99 09/07/19 11:53 09/07/19 11:53 09/07/19 11:53 09/07/19 11:53 09/07/19 11:53 - Notes Notes: GENERAL: Well-appearing, well-nourished and in no acute distress. HEAD: Atraumatic, normocephalic. EYES: Pupils equal round and reactive to light, extraocular movements intact, sclera anicteric, conjunctiva are normal. NECK: Normal range of motion, supple without lymphadenopathy or JVD. LUNGS: Breath sounds clear to auscultation bilaterally and equal. No wheezes r ales or rhonchi. HEART: Regular rate and rhythm without murmurs, rubs or gallops. ABDOMEN: Soft, nontender, normoactive bowel sounds. No guarding, no rebound. No masses appreciated. EXTREMITIES: Normal range of motion, no pitting or edema. No clubbing or cyanosis. NEUROLOGICAL: Cranial nerves II through XII grossly intact. Normal speech. Peripheral vision is intact. Uxnzbt-ancy-swlmtp is intact. No facial droop no tongue deviation. Sensory is intact bilaterally dross puller strength equal bilate rally. Upper/lower strength equal bilaterally. When testing Romberg patient pt was off balance. On testing heel to toe gait, pt stumbled. [place] Hallpike positive on left with horizontal nystagmus and negative on right. PSYCH: Normal mood, normal affect. SKIN: Warm, Dry, normal turgor, no rashes or lesions noted. (ELENA NOLAND) Course - Laboratory Result Diagrams: 09/07/19 13:18 09/07/19 13:18 <ELENA NOLAND - Last Filed: 09/07/19 20:30> - Laboratory Result Diagrams: 09/07/19 13:18 09/07/19 13:18 <SHAISTA MOFFETT - Last Filed: 09/08/19 06:17> - Re-evaluation Re-evalutation: 09/07/19 53-year-old female presents for continued nausea/vomiting for the past 2 months and dizziness for the past couple weeks. Patient has been seen in this ER 3 times for same and was recently admitted at [facility]. Patient states she has received extensive work-up with no answers as to what is causing the nausea/vomiting or dizziness. Cardiac work-up initiated. Patient received Z ofran 8 mg IV and is currently receiving a bolus of fluid. 09/07/19 14:12 Rechecked pt. Pt states nausea improved with Zofran. Continuing to complain of dizziness. Meclizine ordered. 2nd liter of IV fluid ordered. 09/07/19 15:50 Pt states nausea still relieved. States a little dizziness. Pt ambulated to bathroom with assistance of RN to give UA sample. 09/07/19 17:40 Discussed results with pt. Pt states no longer nauseous but she is having abdominal discomfort. Pt saw her PCP 2 days ago for same and was also seen by GI. Pt is scheduled for gastric emptying study on 09/17. Discussed pt with Dr. Wallace, attending. 09/07/19 20:20 Sign out given to ANITHA Moffett. Pt's [place] Halpike is positive on left. Pt to be given meclizine and then reassess. (ELENA NOLAND) On reevaluation patient has very restless legs after the Reglan, given small dose of Benadryl and given Valium because she still complains of vertigo sensation. Valium was p.o. On reevaluation patient has been drinking juice without any difficulty, she states she does feel better. She denies headache. She was able to stand for me, she ambulated without any unsteadiness, she denies vertigo symptoms. She states she feels much better. Plan was to reassess and if patient was symptom-free and no imaging of the head was recommended per Dr. Garcia's recommendations. Patient will be discharged with the same medications at home, discussed primary care follow-up and return precautions. Patient states appreciation and agreement and stable at time of discharge. (SHAISTA MOFFETT) - Vital Signs Vital signs: Temp Pulse Resp BP Pulse Ox 97.9 F 75 16 120/75 100 09/07/19 20:07 09/07/19 12:35 09/07/19 20:01 09/07/19 20:01 09/07/19 20:01 - Laboratory Laboratory results interpreted by me: 09/07/19 09/07/19 09/07/19 13:18 13:18 16:05 RDW 16.7 H Lymph % (Auto) 6.2 L Absolute Neuts (auto) 9.1 H Seg Neutrophils % 88.2 H VBG pH 7.45 H VBG pCO2 28.1 L VBG HCO3 19.1 L Potassium 3.1 L Chloride 96 L Carbon Dioxide 18 L Anion Gap 26 H Glucose 127 H Calcium 10.8 H AST 38 H Alkaline Phosphatase 148 H Total Protein 8.3 H Urine Protein Urine Glucose (UA) Urine Ketones Urine Blood 09/07/19 16:05 RDW Lymph % (Auto) Absolute Neuts (auto) Seg Neutrophils % VBG pH VBG pCO2 VBG HCO3 Potassium Chloride Carbon Dioxide Anion Gap Glucose Calcium AST Alkaline Phosphatase Total Protein Urine Protein 30 H Urine Glucose (UA) 50 H Urine Ketones 80 H Urine Blood SMALL H Discharge <ELENA NOLAND - Last Filed: 09/07/19 20:30> <SHAISTA MOFFETT - Last Filed: 09/08/19 06:17> - Discharge Clinical Impression: Dizziness Nausea and vomiting Qualifiers: Vomiting type: unspecified Vomiting Intractability: non-intractable Qualified Code(s): R11.2 - Nausea with vomiting, unspecified Condition: Stable Disposition: HOME, SELF-CARE Additional Instructions: Your symptoms of vertigo and your positive [place]-Hallpike test suggest a inner ear problem. We are going to try to treat this to resolve your symptoms with meclizine, take the Valium if needed for the symptoms of dizziness as well, take your nausea medication. Perform the T[place]ka maneuvers provided. Follow-up closely with primary care for additional evaluation and treatment. Return if you worsen including severe headache, uncontrolled vomiting, fever, or any other concerning or worsening symptoms. Prescriptions: Meclizine HCl [Antivert 25 mg Tablet] 25 mg PO TID PRN #21 tablet PRN Reason: Diazepam [Valium 5 mg Tablet] 1 tab PO TID PRN #12 tablet PRN Reason:
[2019-09-07 14:08] LABS: ALBUMIN 4.8 g/dL (3.5-5.0); ALKALINE PHOSPHATASE 148 U/L (38-126); ASPARTATE AMINO TRANSFERASE 38 U/L (14-36); BILIRUBIN,DIRECT 0.4 mg/dL (0.0-0.4); BILIRUBIN,TOTAL 0.8 mg/dL (0.2-1.3); BLOOD UREA NITROGEN 17 mg/dL (7-20); CALCIUM 10.8 mg/dL (8.4-10.2); GLUCOSE 127 mg/dL (75-110); POTASSIUM 3.1 mmol/L (3.6-5.0); TOTAL PROTEIN 8.3 g/dL (6.3-8.2)
[2019-09-07] MEDS ORDERED: NORMAL SALINE 1000 ML 1,000 ML IV ONE (14:12)
[2019-09-07] MEDS ORDERED: MECLIZINE HCL 25 MG TABLET PO ONE ×2 (14:12→19:45)
[2019-09-07 14:13] LABS: CARBON DIOXIDE 18 mmol/L (22-30); CHLORIDE 96 mmol/L (98-107)
[2019-09-07 14:17] LABS: ANION GAP 26 (5-19)
[2019-09-07] MEDS ORDERED: POTASSIUM CHLORIDE 20 MEQ PACKET PO ONE (15:48)
[2019-09-07 16:29] LABS: VENOUS BLOOD BASE EXCESS -3.6 mmol/L; VENOUS BLOOD HCO3 19.1 mmol/L (20-32); VENOUS BLOOD PCO2 28.1 mmHg (35-63); VENOUS BLOOD PH 7.45 (7.30-7.42)
[2019-09-07 16:40] LABS: APPEARANCE,URINE SLIGHTLY-CLOUDY; BILIRUBIN,URINE NEGATIVE (NEGATIVE); COLOR,URINE YELLOW; GLUCOSE, URINE 50 mg/dL (NEGATIVE); KETONES,URINE 80 mg/dL (NEGATIVE); PROTEIN,URINE 30 mg/dL (NEGATIVE); URINE SPECIFIC GRAVITY 1.019; UROBILINOGEN,URINE NEGATIVE mg/dL (<2.0)
--- NOTE | 2019-09-07 18:17 | EKG REPORT ---
SEVERITY:- ABNORMAL ECG - SINUS RHYTHM REPOL ABNRM SUGGESTS ISCHEMIA, DIFFUSE LEADS : Confirmed by: Paola Larose 07-Sep-2019 18:17:08
[2019-09-07] MEDS ORDERED: METOCLOPRAMIDE HCL INJ/PF 10 MG/2 ML SDV IV ONE (19:36)
[2019-09-07 20:07] VITALS: BP 120/75
[2019-09-07] MEDS ORDERED: DIPHENHYDRAMINE HCL 50 MG/ML VIAL IV ONE (20:42)
[2019-09-07] MEDS ORDERED: DIAZEPAM 5 MG TABLET PO ONE (20:43)
== END 2019-09-08 00:33 | disposition home or self-care (01) ==
LOC: ER 11:43
DX: R42 Dizziness and giddiness (principal); R11.2 Nausea with vomiting, unspecified; R53.1 Weakness; Z90.49 Acquired absence of other specified parts of digestive tract
CPT/HCPCS: 93005; 99285; 96361; 96374; 96375; 36415; 83690; 83735; 85025; 80053; 81001; 84484; 82803; 71046; 93010; J1200; J2765; J2405; J7030; J7120; J3490